=== PATIENT | male | born 1965 | race Caucasian/White ===

== ENCOUNTER 2017-01-08 19:56 | Emergency (ER) | payer OTHER, MEDICAID ==
[~2017-01-08] VITALS: Ht 182.9 cm; Wt 70.0 kg
[2017-01-08] MEDS ORDERED: ONDANSETRON ODT 4 MG PO ONE (20:30)
[2017-01-08] MEDS ORDERED: MAALOX/HYOSCYAMINE/LIDOCAINE 45 ML BTL PO ONE (20:30)
[2017-01-08] MEDS ORDERED: ONDANSETRON ODT 4 MG ONE (20:36)
[2017-01-08] MEDS ORDERED: MAALOX/HYOSCYAMINE/LIDOCAINE 45 ML BTL ONE (20:37)
[2017-01-08 20:54] LABS: HEMATOCRIT 29.9 % (39.2-51.8); HEMOGLOBIN 9.8 g/dL (13.7-18.0); WHITE BLOOD COUNT 7.4 x10^3/uL (3.4-10)
[2017-01-08 20:57] LABS: BLOOD UREA NITROGEN 33 mg/dL (7-18)
[2017-01-08 20:58] LABS: ASPARTATE AMINO TRANSFERASE 24 U/L (15-37)
[2017-01-08 22:41] VITALS: BP 138/87
== END 2017-01-08 22:52 | disposition home or self-care (01) ==
LOC: ED 20:28
DX: K59.00 Constipation, unspecified (principal); R11.0 Nausea; I10 Essential (primary) hypertension
CPT/HCPCS: 36415; 74022; 74176; 80053; 81003; 83690; 85025; 99285; Q0162